=== PATIENT | female | born 1985 ===

== ENCOUNTER 2018-10-26 19:50 | Emergency (ER) | payer MEDICAID ==
[~2018-10-26] VITALS: Ht 170.2 cm; Wt 72.2 kg
[2018-10-26 19:54] VITALS: BP 132/80
[2018-10-26] MEDS ORDERED: SODIUM CHLORIDE FLUSH 10ML SYR IVF ONE (20:00)
[2018-10-26] MEDS ORDERED: PROPOFOL 10 MG/ML, 20ML ONE (20:11)
[2018-10-26] MEDS ORDERED: HYDROcodone/APAP 5/325 TABLET PO ONE (20:30)
[2018-10-26] MEDS ORDERED: HYDROcodone/APAP 5/325 TABLET ONE (20:40)
== END 2018-10-26 21:05 | disposition home or self-care (01) ==
LOC: ED 21:04
DX: S42.032A Displaced fracture of lateral end of left clavicle, initial encounter for closed fracture (principal); W01.0XXA Fall on same level from slipping, tripping and stumbling without subsequent striking against object, initial encounter; Y93.01 Activity, walking, marching and hiking; Y92.009 Unspecified place in unspecified non-institutional (private) residence as the place of occurrence of the external cause; Y99.8 Other external cause status; F17.200 Nicotine dependence, unspecified, uncomplicated
CPT/HCPCS: 99283